=== PATIENT | female | born 1990 | race Caucasian/White ===

== ENCOUNTER 2020-03-09 15:34 | Observation (INO) | payer SELFPAY ==
[~2020-03-09] VITALS: Ht 165 cm; Wt 97.8 kg
--- NOTE | 2020-03-09 15:55 | NUR ---
Arrived to unit via wheelchair per ws staff. To room 301. Oriented to room, call light and surroundings. Pt gowned and to bed. Orders received prior to pt arrival.
--- NOTE | 2020-03-09 16:21 | NUR ---
language line obtained and reviewed plan of care with pt.
[2020-03-09 16:26] VITALS: BP 125/76
[2020-03-09 16:31] VITALS: BP 125/76
[2020-03-09] MEDS ORDERED: PREN-37 PO (18:12)
[2020-03-09 22:48] VITALS: BP 127/59
[2020-03-10 07:45] VITALS: BP 121/76
--- NOTE | 2020-03-10 09:45 | Diagnostic Imaging Report ---
INDICATION: Abnormal biophysical profile. No prior studies are available for comparison. Biophysical profile was performed. Fetus is cephalic. heart rate was recorded at 121 bpm. Amniotic fluid index is 8 cm. Biophysical profile score is normal at 8 out of 8. IMPRESSION: Normal biophysical profile score 8 out of 8. Dictated by: Dictated on workstation # [id number]
--- NOTE | 2020-03-10 11:20 | NUR ---
Dr Vazquez called and notified of reactive NST and biophysical profile and naeem result. new order for discharge received.
--- NOTE | 2020-03-10 11:40 | NUR ---
Discharge instructions explained, signed and copy to patient. use of phone long filler cigar roller machine. pt up to get dressed.
--- NOTE | 2020-03-10 11:50 | NUR ---
Discharged to home. Ambulates self downstairs accompanied by family member. To private vehicle with belongings in hand.
--- OUTSIDE RECORDS SUMMARY | 2020-03-10 20:05 | XMS REPORT | Continuity of Care Document ---
Author Organization Unknown Address Unknown Phone Unavailable Allergies Active Description Code Type Severity Reaction Onset Reported/Identified Relationship to Patient Clinical Status Yes No Known Drug Allergies [id number] Drug Allergy Unknown N/A 03/09/2020 Medications There is no data. Problems There is no data. Procedures There is no data. Results There is no data. Encounters ACCT No. Visit Date/Time Discharge Status Pt. Type Provider Facility Loc./Unit Complaint [id number] 03/09/2020 15:34:[address] Outpatient RAMIRO ARREOLA, ALEXEI Boss [facility] DECREASED MOVEMENT
== END 2020-03-10 11:29 | disposition home or self-care (01) ==
LOC: WSo 15:34 → LDRP 15:35 → WSo 15:35 → LDRP 15:55 → WSo 03-10 11:50 → LDRP 03-10 11:50 → EDSTATUS 03-10 16:17
PROVIDERS: ADMIT Family Medicine; ATTEND Family Medicine
DX: Z36.89 Encounter for other specified antenatal screening (principal); Z3A.00 Weeks of gestation of pregnancy not specified
CPT/HCPCS: 76819

== ENCOUNTER 2020-03-23 12:29 | Inpatient (IN) | payer OTHER ==
[~2020-03-23] VITALS: Ht 160.5 cm; Wt 99.7 kg
[2020-03-23] VITALS (37 sets, daily range): BP systolic 95–149; BP diastolic 54–82
--- NOTE | 2020-03-23 12:20 | NUR ---
KIMBERLY NGO presented to unit via ambulation, accompanied by mom, with c/o INDUCTION. KIMBERLY NGO weighed, gowned, voided, and to bed. EFHM and TOCO applied, VS taken. KIMBERLY NGO oriented to bed controls, call light, TV, heat, and A/C controls.
[~2020-03-23 12:29] MED LIST: PREN-37 PO
[2020-03-23] MEDS ORDERED: MINERAL OIL CONCENTRATE 99.9% 15 ML UDC TOP PRN (13:00)
[2020-03-23] MEDS ORDERED: D5 LR IV SOLUTION 1,000 ML IV ONE (13:08)
--- NOTE | 2020-03-23 13:08 | NUR ---
left for Dr. Vazquez for orders. Dr. Vazquez contacted this RN, will be on unit soon.
[2020-03-23] MEDS: D5 LR IV SOLUTION 1,000 ML IV SCH ×2 (13:24→21:29)
[2020-03-23 13:34] LABS: BASOPHILS % (AUTO) 0 % (0-10); EOSINOPHILS # (AUTO) 0.1 10^3/uL (0.0-0.3); EOSINOPHILS % (AUTO) 1 % (0-10); HEMATOCRIT 36 % (35-52); HEMOGLOBIN 11.7 G/DL (11.5-16.0); LYMPHOCYTES # (AUTO) 2.1 X 10^3 (1.0-4.0); LYMPHOCYTES % (AUTO) 26 % (12-44); MEAN CORPUSCULAR HEMOGLOBIN 29 PG (25-34); MEAN CORPUSCULAR HGB CONC 33 G/DL (32-36); MEAN CORPUSCULAR VOLUME 87 FL (80-99); MEAN PLATELET VOLUME 8.8 FL (7.4-10.4); MONOCYTES # (AUTO) 0.5 X 10^3 (0.0-1.0); MONOCYTES % (AUTO) 7 % (0-12); NEUTROPHILS # (AUTO) 5.5 X 10^3 (1.8-7.8); NEUTROPHILS % (AUTO) 66 % (42-75); PLATELET COUNT 371 10^3/uL (130-400); RED CELL DISTRIBUTION WIDTH 16.9 % (10.0-14.5); WHITE BLOOD COUNT 8.2 10^3/uL (4.3-11.0)
[2020-03-23 13:39] LABS: BILIRUBIN,URINE NEGATIVE (NEGATIVE); CLARITY,URINE SL CLOUDY; COLOR,URINE YELLOW; GLUCOSE, URINE (UA) NEGATIVE (NEGATIVE); KETONES,URINE NEGATIVE (NEGATIVE); LEUKOCYTE ESTERASE ,URINE TRACE (NEGATIVE); NITRITE,URINE NEGATIVE (NEGATIVE); PH,URINE 6.5 (5-9); PROTEIN,URINE 2+ (NEGATIVE)
[2020-03-23 13:47] LABS: BACTERIA,URINE MODERATE /HPF
--- OUTSIDE RECORDS SUMMARY | 2020-03-23 13:50 | XMS REPORT | Continuity of Care Document ---
Author Organization Unknown Address Unknown Phone Unavailable Allergies Active Description Code Type Severity Reaction Onset Reported/Identified Relationship to Patient Clinical Status Yes No Known Drug Allergies [id number] Drug Allergy Unknown N/A 03/09/2020 Medications There is no data. Problems Date Dx Coded Attending Type Code Diagnosis Diagnosed By 03/10/2020 ALEXEI RUBIO MD Ot Z36.89 ENCOUNTER FOR OTHER SPECIFIED 03/10/2020 ALEXEI RUBIO MD Ot Z3A.00 WEEKS OF GESTATION OF NOT SPEC Procedures There is no data. Results There is no data. Encounters ACCT No. Visit Date/Time Discharge Status Pt. Type Provider Facility Loc./Unit Complaint [id number] 03/09/2020 15:55:00 020 11:29:00 DIS Outpatient ALEXEI RUBIO MD [facility] DECREASED MOVEMEN T
[2020-03-23] MEDS ORDERED: OXYTOCIN PRE-MIX DRIP 500 ML IV SCH (13:53)
--- NOTE | 2020-03-23 16:00 | NUR ---
Report to Elsa Tobar RN
--- NOTE | 2020-03-23 17:07 | History & Physical-OB ---
OB - Chief Complaint & HPI Date/Time Date of Admission: Date of Admission: Mar 23, 2020 at 12:29 Date seen by a Provider: Mar 23, 2020 Time Seen by a Provider: 13:30 Chief Complaint/History OB-Reason for Admission/Chief: Obstetrical Complication Hx : 1 Hx Para: 0 Expected Date of Delivery: Apr 02, 2020 Gestational Age in Weeks: 38 Gestational Age in Days: 4 Other reason for admission: G1 at 38w4d, had decreased movement following with BPP and BPP this morning was 4/8 for no breathing and no large enough pocket of fluid, MARA 5.2. EFW 3584. Her was complicated by symptomatically mild COVID19 disease at 32 weeks gestation not requiring any hospitalization. History of Labs O+, antibody neg, RI. HIV/HepB/RPR NR. GC/chlamydia neg. 1 hour glucola neg. GBS neg. Allergies and Home Medications Allergies Coded Allergies: No Known Drug Allergies (Unverified , 03/09/20) Home Medications Vit/Iron Fumarate/FA 1 Each Tablet, 1 EACH PO DAILY, (Reported) Patient Home Medication List Home Medication List Reviewed: Yes OB - History Hx of Present Care: Yes Ultrasounds: Normal mid trimester US Obstetrical Complications: None Medical Complications: Other (COVID19 at 32 weeks) Information Induced Hypertension: No Maternal Gestational Diabetes: No Hemorrhage: No Obstetrical History Hx : 1 Hx Para: 0 Hx # Term Pregnancies: 0 Hx # Pregnancies: 0 Number of Living Children: 0 Hx Multiple Gestation: No Hx Ectopic : No Hx Stillbirth: No Hx Complication: No Hx Induced Hypertens: No Hx Maternal Gestational Diabet: No Hx Hemorrhage: No Delivery History Hx Dystocia: No Hx Forceps Assisted Delivery: No Hx Vacuum Extraction Assisted: No Hx Placenta Abnormality: No Hx Distress: No Hx Large For Gestational Age I: No Hx Small for Gestational Age I: No Hx Section: No Hx Vaginal Delivery Post C-Sec: No Hx Blood Disorders: No Adverse Rxn to Tranfusion: No Patient Past Medical History PMHx: Denies SurgHx: Denies Social History/Family History HIV/AIDS: No Recent Infectious Disease Expo: No Sexually Transmitted Disease: No Alcohol Use: Denies Use Recreational Drug Use: No Smoking Cessation: Never smoker 2nd Hand Smoke Exposure: No Immunizations Hepatitis A: Yes Hepatitis B: Yes Tetanus Booster (TDap): Less than 5yrs (01/21/20) Rubella: immune RPR/VDRL: Negative GBS Status: Negative HBsAG: Negative OB - Admission Exam Physical Exam Vitals: Vital Signs 03/23/20 03/23/20 12:45 15:50 Temp 36.7 Pulse 66 Resp 20 B/P (MAP) 109/57 (74) Pulse Ox 99 O2 Delivery Room Air HEENT: NCAT Abdomen: Non tender Extremities: Edema Cervical Dilatation: None Effacement: 0% Station: -2 Membranes: Intact Heart Rate: 150's Accelerations: Accelerations Present Decelerations: No Decelerations Short Term Variability: Present Senior Living Variability: Average (6-25) Contractions on Admission: None Vences Scoring Tool (Modified) Dilation (cm): 0/Closed (0) Effacement (%): 0-30% (0) Descent/Station: -2 (1) Cervix Consistency: Soft (2) Cervix Position: Posterior (0) Subtract 1 point for: Nulliparity (-1) Vences Score: 1 Labs Laboratory Tests Test 03/23/20 13:00 03/23/20 13:20 Range/Units Urine Color YELLOW Urine Clarity SL CLOUDY Urine pH 6.5 5-9 Urine Specific [place] 1.015 L 1.016-1.022 Urine Protein 2+ H NEGATIVE Urine Glucose (UA) NEGATIVE NEGATIVE Urine Ketones NEGATIVE NEGATIVE Urine Nitrite NEGATIVE NEGATIVE Urine Bilirubin NEGATIVE NEGATIVE Urine Urobilinogen 0.2 < = 1.0 MG/DL Urine Leukocyte Esterase TRACE H NEGATIVE Urine RBC (Auto) 1+ H NEGATIVE Urine RBC 2-5 H /HPF Urine WBC 2-5 /HPF Urine Squamous Epithelial Cells 10-25 H /HPF Urine Crystals NONE /LPF Urine Bacteria MODERATE H /HPF Urine Casts NONE /LPF Urine Mucus NEGATIVE /LPF Urine Culture Indicated YES White Blood Count 8.2 4.3-11.0 10^3/uL Red Blood Count 4.10 L 4.35-5.85 10^6/uL Hemoglobin 11.7 11.5-16.0 G/DL Hematocrit 36 35-52 % Mean Corpuscular Volume 87 80-99 FL Mean Corpuscular Hemoglobin 29 25-34 PG Mean Corpuscular Hemoglobin Concent 33 32-36 G/DL Red Cell Distribution Width 16.9 H 10.0-14.5 % Platelet Count 371 130-400 10^3/uL Mean Platelet Volume 8.8 7.4-10.4 FL Neutrophils (%) (Auto) 66 42-75 % Lymphocytes (%) (Auto) 26 12-44 % Monocytes (%) (Auto) 7 0-12 % Eosinophils (%) (Auto) 1 0-10 % Basophils (%) (Auto) 0 0-10 % Neutrophils # (Auto) 5.5 1.8-7.8 X 10^3 Lymphocytes # (Auto) 2.1 1.0-4.0 X 10^3 Monocytes # (Auto) 0.5 0.0-1.0 X 10^3 Eosinophils # (Auto) 0.1 0.0-0.3 10^3/uL Basophils # (Auto) 0.0 0.0-0.1 10^3/uL OB - Assessment/Plan/Diagnosis Assessment Admission Dx Nonreassuring BPP Olighydramnios 38 weeks gestation History of COVID infection in GBS neg Admission Status: Inpatient Order (span 2 midnights) Reason for Inpatient Admission: Induction, labor, delivery and course Plan Plan: Induction Induction Method: per Pitocin Protocol ALEXEI RUBIO MD Mar 23, 2020 17:06
--- NOTE | 2020-03-23 18:01 | NUR ---
called to check on pt. status update given. order received to hold pitocin @ 20cc/hr
--- NOTE | 2020-03-23 19:20 | NUR ---
report given to next shift.
[2020-03-23] MEDS ORDERED: MISOPROSTOL 100 MCG (CYTOTEC) TAB ONE (23:57)
[2020-03-24] VITALS (85 sets, daily range): BP systolic 89–161; BP diastolic 50–94
[2020-03-24] MEDS ORDERED: MISOPROSTOL 100 MCG (CYTOTEC) TAB PV ONE (01:15)
[2020-03-24] MEDS ORDERED: MISOPROSTOL 100 MCG (CYTOTEC) TAB ONE (04:01)
[2020-03-24] MEDS: D5 LR IV SOLUTION 1,000 ML IV SCH ×3 (05:22→23:08)
--- NOTE | 2020-03-24 08:20 | NUR ---
08 Dr. Vazquez called to unit for update. Plan to check cervix, then decide what to do next. 819 Dr. Vazquez updated on SVE and pt request for IV pain medication. Order rec'd to restart pitocin and may give 25mcg Fentanyl IV q 1 hr with reactive strip less than 7cm
[2020-03-24] MEDS ORDERED: fentaNYL INJECTION 100 MCG/2 ML AMP ONE ×3 (08:24→16:14)
[2020-03-24] MEDS: fentaNYL INJECTION 100 MCG/2 ML AMP IVP PRN ×2 (08:32→09:32)
[2020-03-24] MEDS ORDERED: fentaNYL 2 mcg/ml BUPIVA 0.125 100 ML ONE (10:19)
--- NOTE | 2020-03-24 10:19 | NUR ---
Anesthesia notified of epidural request
[2020-03-24] MEDS ORDERED: BUPIVACAINE 0.25% 30 ML (SENSORCAINE) VIAL ONE (10:27)
[2020-03-24] MEDS ORDERED: LIDOCAINE PF 2% 5 ML (XYLOCAINE) VIAL ONE ×3 (11:09→16:49)
[2020-03-24] MEDS ORDERED: LACTATED RINGERS 1,000 ML IV SCH (11:40)
[2020-03-24] MEDS ORDERED: METOCLOPRAMIDE INJ 10 MG/2 ML (REGLAN) IV PRN (11:45)
[2020-03-24] MEDS ORDERED: ONDANSETRON 4 MG/2 ML (SDV) Z0FRAN IV PRN (11:45)
[2020-03-24] MEDS ORDERED: diphenhydrAMINE 50 MG/ML INJ (BENADRYL) IV PRN (11:45)
[2020-03-24] MEDS ORDERED: EPIDURAL (fentaNYL 2 MCG/ML BUPIVA 0.125%)100 ML BAG EPI PRN (11:45)
[2020-03-24] MEDS ORDERED: NALOXONE 0.4 MG/ML 1 ML (NARCAN) VIAL IV PRN ×2 (11:45)
[2020-03-24] MEDS ORDERED: ceFAZolin 2 GM IV Premixed 50 ML ONE (16:00)
[2020-03-24] MEDS ORDERED: FAMOTIDINE 20MG/2ML IV (PEPCID) ONE (16:00)
[2020-03-24] MEDS ORDERED: CITRIC ACID/SOB CIT (BICITRA) 30 ML UDC ONE (16:00)
[2020-03-24] MEDS ORDERED: LACTATED RINGERS 1,000 ML IV ONE (16:00)
--- NOTE | 2020-03-24 16:01 | NUR ---
1601 fixer supervisor notified of stat c/s 1602 Nsy nurse notified 1603 Pt moved to OB OR via bed per nursing staff. C/S room opened per A. Back. Fluid bolus initiated. 1605 FHR doppled per Hannah Tobar RN, 60's. 1606 Pt tilted to L side, HR improving See Surgery Operative Report for further. Cares assumed by OR staff.
[2020-03-24] MEDS ORDERED: METHYLERGONOVINE 0.2 MG/ML (METHERGINE) AMP ONE (16:33)
[2020-03-24] MEDS ORDERED: CARBOPROST (HEMABATE) 250 MCG/ML AMP IM ONE (16:39)
[2020-03-24] MEDS ORDERED: MIDAZOLAM 2 MG/2 ML (VERSED) VIAL ONE (16:44)
[2020-03-24] MEDS ORDERED: SUCCINYLCHOLINE INJ 100 MG/5 ML SYR ONE (16:49)
[2020-03-24] MEDS ORDERED: proPOfol 200 MG/20 ML (DIPRIVAN) VIAL IV ONE (16:49)
[2020-03-24] MEDS ORDERED: SEVOFLURANE (ULTANE) 15 ML INHAL SOLN ONE (17:00)
[2020-03-24] MEDS ORDERED: ONDANSETRON 4 MG/2 ML (SDV) Z0FRAN IVP PRN ×2 (17:15→17:45)
[2020-03-24] MEDS ORDERED: TETANUS,DIPTH,PERTUSS P/F (BOOSTRIX) 0.5 ML VIAL IM SCH (17:15)
[2020-03-24] MEDS ORDERED: MEASLES,MUMPS,RUBELLA 1 EA INJ SC SCH (17:15)
--- NOTE | 2020-03-24 17:21 | Progress Note-Pre Operative ---
Pre-Operative Progress Note H&P Reviewed The H&P was reviewed, patient examined and no changes noted. Date Seen by Provider: Mar 24, 2020 Time Seen by Provider: 16:50 Date H&P Reviewed: Mar 24, 2020 Time H&P Reviewed: 16:50 Pre-Operative Diagnosis: distress, Meconium fluid, Prolonged bradycardia NESTOR NEWMAN DO Mar 24, 2020 17:21
[2020-03-24] MEDS ORDERED: PHENYLEPHRINE 100 MCG/ML 10 ML (ANESTHESIA) SYR ONE (17:25)
[2020-03-24] MEDS: KETOROLAC 30 MG/ML VIAL IV SCH ×2 (17:43→23:55)
[2020-03-24] MEDS ORDERED: HYDROmorphone 2 MG/ML VIAL (DILAUDID) IV ONE (17:45)
--- NOTE | 2020-03-24 18:16 | Progress Note ---
Subjective Subjective/Events-last exam Late entry- at around 1550, rechecked patient's cervix and noted slight change to 7 cm and placed IUPC for closer monitoring of contractions. IUPC placed with no difficulty and light amniotic stained fluid return with no bleeding. Immediately after, heart rate dropped as low as the 40s, with brief periods of return to above 100 and recurrent drops to less than 60 in spite of position change, fluid bolus and discontinuation of pitocin. At [address] Tee and we decided to proceed with STAT . See nursing notes for details on timeline. Objective Exam Last Set of Vital Signs Vital Signs Date Time Temp Pulse Resp B/P (MAP) Pulse Ox O2 Delivery O2 Flow Rate FiO2 03/24/20 17:54 14 120/88 (99) 100 OxyMask 10 03/24/20 17:24 36.7 03/24/20 11:56 89 Capillary Refill : Less Than 3 Seconds I&O Intake and Output0 03/24/20 00:00 Intake Total 1000 ml Balance 1000 ml Intake IV Total 1000 ml Daily Weight Change No Results/Procedures Lab Microbiology 03/23/20 Urine Culture - Final, Complete 3 or more isolates Assessment/Plan Assessment/Plan Assessment & Plan Prolonged bradycardia remote from delivery, [employer] consulted, STAT c- section. Clinical Quality Measures DVT/VTE Risk/Contraindication: Risk Factor Score Per Nursin RFS Level Per Nursing on Admit: 2=Moderate ALEXEI RUBIO MD Mar 24, 2020 18:16
[2020-03-24] MEDS: OXYTOCIN PRE-MIX DRIP 500 ML IV SCH (18:25)
--- NOTE | 2020-03-24 18:25 | NUR ---
Pt to room 307 via bed accompanied by Lucio Walker RN. Report rec'd bedside. Pt alert and oriented x4. VS taken and assessment completed. IV pitocin to pump. FFU/3, light rubra lochia noted, no clots expressed. Brown catheter patent to dependent drainage. Fresh ice water provided. Dinner set up for pt and pt eating at this time. Pt denies needs or concerns.
--- NOTE | 2020-03-24 18:55 | NUR ---
RT notified of need for IS instruction.
[2020-03-24] MEDS: CATHETER FLUSH 10 ML SYR IV SCH ×5 (20:28→22:24)
[2020-03-24] MEDS: DOCUSATE SODIUM 100 MG (COLACE) CAP PO SCH (20:53)
[2020-03-24] MEDS: HYDROcodone/APAP 5 MG/325 MG (LORTAB) TAB PO PRN (20:56)
--- NOTE | 2020-03-24 21:12 | OPERATIVE REPORT ---
DATE OF SERVICE: PREOPERATIVE DIAGNOSES: 1. A 29-year-old G1, P0 at 38 weeks and 5 days' gestation. 2. Prolonged bradycardia. 3. distress. 4. Meconium stained fluid. POSTOPERATIVE DIAGNOSES: 1. A 29-year-old G1, P0 at 38 weeks and 5 days' gestation. 2. Prolonged bradycardia. 3. distress. 4. Meconium stained fluid. 5. Uterine atony. SURGEON: Guevara Tee DO LEAD RAMP AGENT: Aleksandra Gillette MS4 ANESTHESIA: General endotracheal. ESTIMATED BLOOD LOSS: 500 mL. URINE OUTPUT: 700 pink tinged at the end of the procedure. FLUIDS: 1000 mL of lactated Ringer's solution. FINDINGS: A live female , weight pending. Apgars of 1 minute at 3, 5 minutes at 4, 10 minutes at 7. SPECIMEN SENT: Placenta. INDICATIONS FOR PROCEDURE: This patient was admitted yesterday for induction of labor due to a nonreassuring biophysical profile by Dr. Vazquez. Her induction method included Pitocin augmentation and Cytotec administration. Today during the day, there began to have some heart rate distress issues with variable decelerations. I was contacted at approximately 4:[address] Vazquez and urgent need to proceed with delivery due to heart rate in the 40s for over 2 minutes[address] I expedited my way to the hospital where heart rate had recovered into the 140s by reviewing the tracing, there was a prolonged deceleration down into the 40s to 80s lasting approximately 6 to 7 minutes. Due to distress, we decided to proceed with . The patient was on her left side in the OR when I arrived, I briefly described to the patient the need for further procedure, which she was understanding and agreeable to do. OPERATIVE REPORT IN DETAIL: Once in the operating room, the patient was placed in the supine position with a leftward tilt. She was prepped and draped in normal sterile fashion. Epidural analgesia was found to be inadequate; therefore, administration of anesthesia is performed. Once I have notified that the patient's airway was secured, I proceeded with making a Pfannenstiel skin incision with a knife and carried down to underlying fascia using the knife until the fascia was located and the fascial incision was extended laterally using blunt traction. The rectus muscles were down the midline using blunt traction, which allows me to gain access to the peritoneum, which I entered bluntly and extended using blunt traction. A ring Kendall is placed for lateral side wall retraction. At that point, identified the lower uterine segment, found to be thinned out and make a low transverse incision to the vesicouterine peritoneum and bluntly dissected off the lower uterine segment. I proceeded with myotomy until membranes are visualized and ruptured. Meconium stained fluid was noted and there was a cord prolapsing through the incision as well. I extended the uterine incision using blunt traction. The was found in the vertex presentation. With gentle fundal pressure, the 's head is elevated up the incision where the nares and oropharynx were bulb suctioned. A nuchal cord was reduced x2. Anterior and posterior shoulders were delivered. was then brought out to the operative field. The cord was doubly clamped and cut and was handed off to Dr. Vazquez who was present for delivery. Cord blood was collected, 3-vessel cord with intact placenta was delivered spontaneously thereafter. IV Pitocin is initiated to facilitate uterine contraction. I exteriorized the uterus and cleared of all endometrial clots and debris. I proceeded with closing the uterine incision using 0 Vicryl suture in running locked fashion. There is significant uterine atony noted at this point, so 0.2 mg of Methergine are given IM by anesthesia. I proceeded with closure, imbricating the second layer of the incision using 0 Monocryl in a running fashion, after which there was still significant amount of atony noted. I have 250 mg of Hemabate given IM. At that point, I decided to perform a B-White compression stitch using 0 Monocryl. Once this was performed, there is adequate tone of the uterus noted and the uterus itself was compressed by the stitch adequately. I then placed the uterus back in the pelvis and copiously irrigate the pelvis using normal saline. Once again, there was no active bleeding noted from any of my dissection planes. I placed Interceed antiadhesive over my low transverse incision. At that point, I removed the Kendall ring retractor and proceeded with closing the peritoneum using 3-0 Vicryl suture in a running fashion. The rectus muscle was reapproximated using 3-0 Vicryl suture in interrupted fashion. The fascia was reapproximated using 0 Vicryl suture in running fashion. Subcutaneous tissue was reapproximated using 3-0 plain interrupted subcutaneous stitch and skin reapproximated using 4-0 Monocryl in running subcuticular. Dermabond was applied to incision and sterile dressing with adhesive white tape. The patient tolerated the procedure well and was taken to recovery area in stable condition. Lap and sponge counts were correct at the end of the procedure. Instrument counts correct as well. Two grams of Ancef given preoperatively for infection prophylaxis. Job ID: [id number] DocumentID: [id number] Dictated Date: 03/24/2020 17:28:14 Radiology Tech Date: 03/24/2020 21:11:38 Dictated By: DO TORI BULL
[2020-03-24] MEDS ORDERED: CATHETER FLUSH 10 ML SYR IV SCH (22:00)
[2020-03-25 04:00] VITALS: BP 102/64
[2020-03-25] MEDS: KETOROLAC 30 MG/ML VIAL IV SCH ×2 (06:43→12:25)
[2020-03-25 06:45] LABS: BASOPHILS % (AUTO) 0 % (0-10); EOSINOPHILS # (AUTO) 0.1 10^3/uL (0.0-0.3); EOSINOPHILS % (AUTO) 1 % (0-10); HEMATOCRIT 31 % (35-52); HEMOGLOBIN 10.2 G/DL (11.5-16.0); LYMPHOCYTES # (AUTO) 1.7 X 10^3 (1.0-4.0); LYMPHOCYTES % (AUTO) 17 % (12-44); MEAN CORPUSCULAR HEMOGLOBIN 29 PG (25-34); MEAN CORPUSCULAR HGB CONC 33 G/DL (32-36); MEAN CORPUSCULAR VOLUME 88 FL (80-99); MEAN PLATELET VOLUME 8.6 FL (7.4-10.4); MONOCYTES # (AUTO) 0.5 X 10^3 (0.0-1.0); MONOCYTES % (AUTO) 6 % (0-12); NEUTROPHILS # (AUTO) 7.5 X 10^3 (1.8-7.8); NEUTROPHILS % (AUTO) 77 % (42-75); PLATELET COUNT 316 10^3/uL (130-400); RED CELL DISTRIBUTION WIDTH 17.3 % (10.0-14.5); WHITE BLOOD COUNT 9.8 10^3/uL (4.3-11.0)
--- NOTE | 2020-03-25 07:33 | Postpartum Progress Note ---
Note Note Day # 1 Subjective: Patient is without complaints. Ambulating, voiding. Tolerating a regular diet without nausea or vomiting. Normal lochia. Pain is well controlled with oral pain medications. Objective: Physical Exam: General - Alert and oriented, no apparent distress Abdomen - Soft, appropriately tender to palpation, non-distended, fundus firm at umbilicus Extremities - no edema, negative Qian's bilaterally Incision - clean/dry/intact Assessment: POD 1 PLTCS Acute blood loss anemia Plan: Routine care. Encourage breast feeding. Encourage ambulation. Ferrous sulfate supplementation. Plan for discharge tomorrow. Vitals - Labs Vital Signs - I&O Vital Signs Date Time Temp Pulse Resp B/P (MAP) Pulse Ox O2 Delivery O2 Flow Rate FiO2 03/25/20 04:00 36.4 86 16 102/64 (77) 98 Room Air 03/24/20 23:55 36.5 90 18 122/73 (89) 99 Room Air 03/24/20 19:50 36.3 72 16 114/75 (88) 99 Room Air 03/24/20 18:30 36.0 63 16 129/58 (81) 99 Room Air 03/24/20 18:25 Room Air 03/24/20 18:14 37.3 14 121/78 (92) 99 Room Air 03/24/20 18:10 Room Air 03/24/20 18:04 18 117/92 (100) 98 Room Air 03/24/20 17:55 OxyMask 10 03/24/20 17:54 14 120/88 (99) 100 OxyMask 10 03/24/20 17:44 14 122/81 (95) 100 OxyMask 10 03/24/20 17:40 OxyMask 10 03/24/20 17:34 20 106/65 (79) 100 OxyMask 10 03/24/20 17:24 OxyMask 10 03/24/20 17:24 36.7 18 107/62 (77) 99 OxyMask 10 03/24/20 16:00 88 20 140/69 (92) Room Air 03/24/20 15:45 72 20 111/59 (76) Room Air 03/24/20 15:30 77 20 120/65 (83) Room Air 03/24/20 15:00 77 20 123/56 (78) 100 Room Air 03/24/20 14:55 73 20 126/58 (80) 98 Room Air 03/24/20 14:40 36.6 03/24/20 14:30 74 20 105/59 (74) 99 Room Air 03/24/20 14:15 87 20 114/63 (80) 99 Room Air 03/24/20 14:00 77 20 112/65 (81) 99 Room Air 03/24/20 13:45 84 20 101/59 (73) 98 Room Air 03/24/20 13:30 81 20 106/59 (75) 97 Room Air 03/24/20 13:15 75 20 100/56 (71) 97 Room Air 03/24/20 13:00 78 20 107/54 (71) 95 Room Air 03/24/20 12:45 80 20 108/57 (74) 96 Room Air 03/24/20 12:30 85 20 105/55 (72) 96 Room Air 03/24/20 12:16 80 20 104/51 (68) 95 Room Air 03/24/20 12:14 79 20 103/50 (67) 95 Room Air 03/24/20 12:09 80 20 93/52 (66) 96 Room Air 03/24/20 12:04 81 20 93/52 (66) 94 Room Air 03/24/20 11:56 89 20 91/53 (66) 95 Room Air 03/24/20 11:53 82 20 100/52 (68) 95 Room Air 03/24/20 11:50 90 20 107/55 (72) 95 Room Air 03/24/20 11:47 80 20 89/50 (63) 95 Room Air 03/24/20 11:41 93 20 99/53 (68) 97 Room Air 03/24/20 11:39 86 20 103/58 (73) 97 Room Air 03/24/20 11:36 88 20 104/55 (71) 97 Room Air 03/24/20 11:33 94 20 101/61 (74) 97 Room Air 03/24/20 11:30 77 20 116/64 (81) 97 Room Air 03/24/20 11:27 78 20 146/65 (92) 98 Room Air 03/24/20 11:24 82 20 128/62 (84) 98 Room Air 03/24/20 11:18 76 20 122/90 (101) 95 Room Air 03/24/20 11:15 36.0 90 20 130/92 (105) 96 Room Air 03/24/20 11:12 80 20 125/65 (85) 96 Room Air 03/24/20 11:09 78 20 127/68 (87) 96 Room Air 03/24/20 11:06 78 20 123/61 (81) 96 Room Air 03/24/20 11:03 90 20 134/66 (88) 96 Room Air 03/24/20 11:00 86 20 136/71 (92) 98 Room Air 03/24/20 10:57 82 20 116/64 (81) 98 Room Air 03/24/20 10:54 86 20 121/66 (84) 100 Room Air 03/24/20 10:48 72 20 131/60 (83) 97 Room Air 03/24/20 10:45 84 20 130/64 (86) 97 Room Air 03/24/20 10:42 91 20 161/74 (103) 97 Room Air 03/24/20 10:20 87 20 99/51 (67) Room Air 03/24/20 10:05 133 20 126/82 (97) Room Air 03/24/20 09:50 73 20 139/74 (95) Room Air 03/24/20 09:35 36.5 72 20 126/58 (80) Room Air 03/24/20 09:20 69 20 112/57 (75) Room Air 03/24/20 09:05 68 20 102/58 (73) Room Air 03/24/20 08:50 71 20 106/57 (73) Room Air 03/24/20 08:38 77 20 101/52 (68) Room Air 03/24/20 08:34 76 20 111/58 (75) Room Air I & O 03/25/20 07:00 Intake Total 2750 ml Output Total 3750 ml Balance -1000 ml Labs Laboratory Tests 03/25/20 06:15: White Blood Count 9.8, Red Blood Count 3.53L, Hemoglobin 10.2L, Hematocrit 31L, Mean Corpuscular Volume 88, Mean Corpuscular Hemoglobin 29, Mean Corpuscular Hemoglobin Concent 33, Red Cell Distribution Width 17.3H, Platelet Count 316, Mean Platelet Volume 8.6, Neutrophils (%) (Auto) 77H, Lymphocytes (%) (Auto) 17, Monocytes (%) (Auto) 6, Eosinophils (%) (Auto) 1, Basophils (%) (Auto) 0, Neutrophils # (Auto) 7.5, Lymphocytes # (Auto) 1.7, Monocytes # (Auto) 0.5, Eosinophils # (Auto) 0.1, Basophils # (Auto) 0.0 Microbiology 03/23/20 Urine Culture - Final, Complete 3 or more isolates KARISSA BUTLER,MED STUDENT Mar 25, 2020 07:33
[2020-03-25] MEDS ORDERED: IBUP-844 PO (07:53)
[2020-03-25] MEDS ORDERED: DCS100C PO (07:53)
[2020-03-25] MEDS ORDERED: HYDR-83 PO (07:53)
[2020-03-25 08:00] VITALS: BP 107/75
--- NOTE | 2020-03-25 08:00 | NUR ---
VSS. DENIES PAIN. UP TO THE BATHROOM WITH ASSIST. VOIDED 400 CC DARK PARKER URINE. PERICARE PERFORMED WITH PAD/UNDERWEAR APPLIED.
--- NOTE | 2020-03-25 08:30 | NUR ---
AMBULATED IN THE SALDIVAR WITH STANDBY ASSISTANCE. BACK TO SIT IN CHAIR. MOVING WELL. FAMILY AT BEDSIDE.
[2020-03-25] MEDS: DOCUSATE SODIUM 100 MG (COLACE) CAP PO SCH ×2 (08:48→21:56)
--- NOTE | 2020-03-25 10:30 | NUR ---
INFANT REMAINS IN THE NURSERY. ASSISTED WITH ORDERING STORK MEAL. PT'S MOM INTERPRETS FOR PT.
--- NOTE | 2020-03-25 11:00 | NUR ---
TO NURSERY AMBULATORY ACC BY THIS RN. MOVING WELL. OFFERED PAIN MEDICATION BUT DECLINES AT THIS TIME.
--- NOTE | 2020-03-25 11:45 | NUR ---
SHOWERED WITHOUT PROBLEMS.
[2020-03-25 12:00] VITALS: BP 134/85
[2020-03-25] MEDS: HYDROcodone/APAP 5 MG/325 MG (LORTAB) TAB PO PRN (12:26)
--- NOTE | 2020-03-25 12:26 | NUR ---
LORTAB 1 TAB P.O. FOR C/O ABD PAIN. PT HAS BEEN AMBULATING IN THE SALDIVAR AND HAS BEEN IN THE NURSERY TO SEE INFANT.
--- NOTE | 2020-03-25 13:15 | NUR ---
EATING STORK MEAL.
--- NOTE | 2020-03-25 14:31 | Anesthesia-General Post-Op ---
General Patient Condition Mental Status/LOC: Same as Preop Cardiovascular: Satisfactory Nausea/Vomiting: Absent Respiratory: Satisfactory Pain: Controlled Complications: Absent Post Op Complications Complications None Follow Up Care/Instructions Patient Instructions None needed. Anesthesia/Patient Condition Patient Condition Patient was seen this morning and she was doing well, no complaints, stable vital signs, no apparent adverse anesthesia problems. SHAINA BAUTISTA DO Mar 25, 2020 14:31
--- NOTE | 2020-03-25 16:30 | NUR ---
SLEEPING WHEN ENTERED ROOM. PT'S MOM AT BEDSIDE.
[2020-03-25 16:40] VITALS: BP 113/61
[2020-03-25] MEDS: IBUPROFEN 600 MG (MOTRIN) TAB PO SCH (17:58)
--- NOTE | 2020-03-25 18:00 | NUR ---
CONTINUES TO DO WELL. ENCOURAGED FLUIDS. MOM REMAINS IN ROOM.
[2020-03-25] MEDS: OXYTOCIN PRE-MIX DRIP 500 ML IV SCH (21:48)
[2020-03-25 21:56] VITALS: BP 119/80
[2020-03-26] MEDS: IBUPROFEN 600 MG (MOTRIN) TAB PO SCH ×3 (00:13→13:27)
[2020-03-26 03:30] VITALS: BP 115/61
--- NOTE | 2020-03-26 07:28 | Discharge Inst-Women's Service ---
Discharge Inst-Women's Serv Depart Medication/Instructions New, Converted or Re-Newed RX: RX on Chart Final Diagnosis POD 2 PLTCS Problems Reviewed?: Yes Consults/Follow Up Additional Follow Up: Yes Orders/Referrals Dr. Tee in 7-[address] Vazquez in 6 weeks Activity Activity: Activity as Tolerated Driving Instructions: No Driving for 1 Week NO SMOKING: NO SMOKING Nothing Inside Vagina: No Douching, No [place], No Tampons Diet Discharge Diet: No Restrictions Symptoms to Report to : Bleeding Excessive, Pain Increased, Fever Over 101 Degrees F, Vaginal Bleeding Increase, Questions/Concerns For Any Problems or Questions: Contact Your Physician Skin/Wound Care Infection Signs and Symptoms: Increased Redness, Foul Odor of Wound, Increased Drainage, Skin Itchy or Has a Rash, Increased Swelling, Temperature Above 101 F Operative Area Clean and Dry: Keep Incision Clean/Dry Stitches/[place]/Dermabond: Dermabond, Care of Stitches Bathing Instructions: NESTOR Jade DO Mar 26, 2020 07:28
--- NOTE | 2020-03-26 07:31 | Postpartum Progress Note ---
Note Note Day # 2 Subjective: Patient is without complaints. Ambulating, voiding. Tolerating a regular diet without nausea or vomiting. Normal lochia. Pain is well controlled with oral pain medications. Objective: Physical Exam: General - Alert and oriented, no apparent distress Abdomen - Soft, appropriately tender to palpation, non-distended, fundus firm at umbilicus Extremities - no edema, negative Qian's bilaterally Incision- c/d/i Assessment: POD 2 PLTCS Acute blood loss anemia Plan: Routine care. Encourage breast feeding. Encourage ambulation. Ferrous sulfate supplementation. Plan for discharge today Vitals - Labs Vital Signs - I&O Vital Signs Date Time Temp Pulse Resp B/P (MAP) Pulse Ox O2 Delivery O2 Flow Rate FiO2 03/26/20 03:30 36.7 80 18 115/61 (79) 98 Room Air 03/25/20 21:56 36.7 86 18 119/80 (93) 98 Room Air 03/25/20 16:40 36.5 87 18 113/61 (78) 97 Room Air 03/25/20 12:00 36.9 96 18 134/85 (101) 100 Room Air 03/25/20 08:00 37.0 98 18 107/75 (86) 96 Room Air l I & O 03/26/20 07:00 Intake Total 1400 ml Output Total 1700 ml Balance -300 ml Labs Microbiology 03/23/20 Urine Culture - Final, Complete 3 or more isolates NESTOR NEWMAN DO Mar 26, 2020 07:31
[2020-03-26 08:54] VITALS: BP 129/83
--- NOTE | 2020-03-26 08:54 | NUR ---
AM shift assessment completed and vital signs obtained, see interventions. Lortab 1 PO given for patient's c/o pain rated 5/10. Scheduled Colace PO given. Plan of care reviewed with patient utilizing Styky and her Mother as spanish interpreter/translator. Patient verbalizes understanding and questions answered.
[2020-03-26] MEDS: HYDROcodone/APAP 5 MG/325 MG (LORTAB) TAB PO PRN (08:56)
[2020-03-26] MEDS: DOCUSATE SODIUM 100 MG (COLACE) CAP PO SCH (08:56)
--- NOTE | 2020-03-26 09:32 | NUR ---
Patient into the shower at this time.
--- NOTE | 2020-03-26 15:05 | NUR ---
Discharge instructions and medications reviewed with patient both written (Peruvian Provided) and verbally. Patient verbalizes understanding and questions answered.
--- NOTE | 2020-03-26 15:40 | NUR ---
Patient discharged at this time via wheelchair and accompanied down to awaiting private vehicle by this RN. No signs or symptoms of distress noted.
--- NOTE | 2020-03-29 09:22 | Consultation ---
History of Present Illness History of Present Illness Patient Consulted On(octvaiano/time) 03/29/20 09:20 Date Seen by Provider: Mar 24, 2020 Time Seen by Provider: 16:00 Reason for Visit: distress History of Present Illness Contacted by Dr. Vazquez for emergent delivery due to distress Allergies and Home Medications Allergies Coded Allergies: No Known Drug Allergies (Unverified , 03/09/20) Home Medications Docusate Sodium 100 Mg Capsule, 100 MG PO BID PRN for CONSTIPATION-1ST LINE Prescribed by: NESTOR NEWMAN on 03/25/20 075 Hydrocodone/Acetaminophen 1 Each Tablet, 1-2 TAB PO Q6HR PRN for PAIN-MODERATE (5-7) Prescribed by: NESTOR NEWMAN on 03/25/20 075 Ibuprofen 600 Mg Tablet, 600 MG PO Q6H Prescribed by: NESTOR NEWMAN on 03/25/20 075 Vit/Iron Fumarate/FA 1 Each Tablet, 1 EACH PO DAILY, (Reported) Patient Home Medication List Home Medication List Reviewed: Yes Past Tkqthts-Cmibqq-Nfiyzk Hx Patient Social History Alcohol Use: Denies Use Recreational Drug Use: No Smoking Status: Never a Smoker 2nd Hand Smoke Exposure: No Recent Foreign Travel: No Contact w/Someone Who Travel: No Recent Infectious Disease Expo: No Recent Hopitalizations: No Immunizations Up To Date Tetanus Booster (TDap): Less than 5yrs (01/21/20) PED Vaccines UTD: Yes Seasonal Allergies Seasonal Allergies: No Past Medical History Surgeries: No Respiratory: No Cardiac: No Neurological: No Expected Date of Delivery: Apr 02, 2020 Hx : 1 Hx Para: 0 Sexually Transmitted Disease: No HIV/AIDS: No Genitourinary: No Gastrointestinal: No Musculoskeletal: No Endocrine: No HEENT: No Cancer: No Psychosocial: No Integumentary: No Blood Disorders: No Adverse Reaction/Blood Tranf: No Review of Systems-General Constitutional: no symptoms reported EENTM: no symptoms reported Respiratory: no symptoms reported Cardiovascular: no symptoms reported Gastrointestinal: no symptoms reported Genitourinary: no symptoms reported Musculoskeletal: no symptoms reported Skin: no symptoms reported Psychiatric/Neurological: No Symptoms Reported All Other Systems Reviewed Negative Unless Noted: Yes Physical Exam-General Problems Physical Exam Vital Signs Vital Signs - First Documented 03/23/20 03/23/20 12:45 14:20 Temp 36.8 Pulse 91 Resp 20 B/P (MAP) 95/57 (70) Pulse Ox 99 O2 Delivery Room Air Capillary Refill : Less Than 3 Seconds General Appearance: WD/WN, mild distress HEENT: PERRL/EOMI Neck: non-tender Respiratory: chest non-tender Cardiovascular: regular rate, rhythm Gastrointestinal: other (gravid) Assessment/Plan Assessment/Plan Admission Diagnosis/Plan Diagnosis: Term distress P: Emergency Admission Status: Inpatient Order (span 2 midnights) Clinical Quality Measures DVT/VTE Risk/Contraindication: Risk Factor Score Per Nursin RFS Level Per Nursing on Admit: 2=Moderate NESTOR NEWMAN DO Mar 29, 2020 9:22 am
== END 2020-03-26 15:40 | disposition home or self-care (01) | DRG 787 ==
LOC: LDRP 12:29
PROVIDERS: ADMIT Family Medicine; ATTEND Obstetrics & Gynecology
PROC: 3E033VJ Introduction of Other Hormone into Peripheral Vein, Percutaneous Approach (ICD-10-PCS; 2020-03-23)
PROC: 10D00Z1 Extraction of Products of Conception, Low, Open Approach (ICD-10-PCS; principal; 2020-03-24 16:06)
DX: O76 Abnormality in fetal heart rate and rhythm complicating labor and delivery (principal); O41.03X0 Oligohydramnios, third trimester, not applicable or unspecified; D62 Acute posthemorrhagic anemia; O36.8190 Decreased fetal movements, unspecified trimester, not applicable or unspecified; Z3A.38 38 weeks gestation of pregnancy; Z37.0 Single live birth; O77.0 Labor and delivery complicated by meconium in amniotic fluid; O69.81X0 Labor and delivery complicated by cord around neck, without compression, not applicable or unspecified; O69.0XX0 Labor and delivery complicated by prolapse of cord, not applicable or unspecified; O75.89 Other specified complications of labor and delivery; O90.81 Anemia of the puerperium; Z86.19 Personal history of other infectious and parasitic diseases
CPT/HCPCS: 36415; 81000; 85025; 86850; 86900; 86901; 87088